=== PATIENT | female | born 2000 | race Caucasian/White ===

== ENCOUNTER 2022-06-10 07:36 | Emergency (ER) | payer OTHER ==
[~2022-06-10] VITALS: Ht 152.4 cm; Wt 77.1 kg
[2022-06-10 07:39] VITALS: BP 131/94
--- NOTE | 2022-06-10 07:51 | NUR ---
21 Y/O FEMALE C/O BILATERAL EAR ACHE X2 DAYS, STATES DECREASED IN HEARING IN THE RIGHT EAR. DENIES ANY DRAINAGE. TOOK "EARDROPS" FOR PAIN.STATES THAT SHE HEARS A "POPPING SOUND" IN THE RIGHT EAR. NKNataly PMH: DENIES
[2022-06-10] MEDS ORDERED: KETOROLAC 60 MG/2 ML VIAL IM ONE (08:50)
[2022-06-10] MEDS ORDERED: PRED20TA5 PO (09:05)
[2022-06-10 09:16] VITALS: BP 131/94
== END 2022-06-10 09:17 | disposition home or self-care (01) ==
LOC: MED 07:36
DX: H92.03 Otalgia, bilateral (principal); R05.9 Cough, unspecified; J45.909 Unspecified asthma, uncomplicated; Z79.899 Other long term (current) drug therapy
CPT/HCPCS: 96372; 99283; J1885